=== PATIENT | female | born 1990 | race Caucasian/White ===

== ENCOUNTER 2018-06-21 20:47 | Emergency (ER) | payer OTHER ==
[2018-06-21 21:05] VITALS: BP 127/84
[2018-06-21] MEDS ORDERED: Tdap Vaccine 0.5 ml Vial (10-64 yrs) IM ONE (22:33)
[2018-06-21 22:37] VITALS: PULSE 79; RESP 20; TEMP 97.6; O2SAT 96
[2018-06-21] MEDS ORDERED: Tetanus/Diphtheria Toxoids 0.5 ml Syringe IM ONE (22:51)
--- NOTE | 2018-06-21 22:51 | C.PDOC ---
History Of Present Illness 27 year old female presents to the ED for evaluation of left index finger laceration. Patient reports that today while cooking she accidentally stabbed herself with a knife. Patient reports moderate bleeding at home. Patient denies fever, chills, rash, weakness, numbness. Time Seen by Provider: 06/21/18 21:22 Chief Complaint (Nursing): Abnormal Skin Integrity History Per: Patient History/Exam Limitations: no limitations Onset/Duration Of Symptoms: Hrs Current Symptoms Are (Timing): Still Present Location Of Injury: Left: Hand Quality Of Symptoms: Painful Recent travel outside of the [place]: No Additional History Per: Patient Past Medical History Reviewed: Historical Data, Nursing Documentation, Vital Signs Vital Signs: Last Vital Signs Temp 97.6 F 06/21/18 22:35 Pulse 79 06/21/18 22:35 Resp 20 06/21/18 22:35 BP 127/84 06/21/18 21:02 Pulse Ox 96 06/21/18 22:35 - Medical History PMH: No Chronic Diseases Denies: Chronic Kidney Disease Surgical History: No Surg Hx Family History: States: Unknown Family Hx - Social History Hx Alcohol Use: Yes Hx Substance Use: No - Immunization History Hx Influenza Vaccination: Yes Review Of Systems Constitutional: Negative for: Fever, Chills Musculoskeletal: Positive for: Hand Pain. Negative for: Arm Pain Skin: Positive for: Other (laceration) Neurological: Negative for: Weakness, Numbness, Dizziness Physical Exam - Physical Exam Appears: Non-toxic, No Acute Distress Skin: Normal Color, Warm, Dry Head: Atraumatic, Normacephalic Eye(s): bilateral: Normal Inspection Extremity: Normal ROM, No Tenderness, Capillary Refill (< 2 seconds), No Swelling, Other ( 1 cm superficial laceration to lateral aspect of left index finger) Pulses: Left Radial: Normal, Right Radial: Normal Neurological/Psych: Oriented x3, Normal Speech, Normal Cognition, Normal Motor, Normal Sensation Gait: Steady ED Course And Treatment O2 Sat by Pulse Oximetry: 96 (ON RA) Pulse Ox Interpretation: Normal Progress Note: Plan: - tetanus immunization. Patient tolerated procedure well, educated on proper wound care management. Patient advised to follow up with PMD. Laceration - Laceration Repair lateral aspect left index finger Wound Length (In cm): 1 Description Of Wound: Linear Wound Cleansed With: Betadine, Sterile Saline Wound Examination: Irrigated With Saline, No Tendon Injury With Wound Exploration Wound Closure: Steri Strips (x2 ), Skin Glue Wound Complexity: Simple Disposition Counseled Patient/Family Regarding: Diagnosis, Need For Followup - Disposition Disposition: HOME/ ROUTINE Disposition Time: 22:49 Condition: STABLE Additional Instructions: Please Keep wound dry and clean x 2 days Return to ER if worse Instructions: Laceration Repair With Glue (DC) Forms: [facility] (Slovenian) - Clinical Impression Clinical Impression: Laceration of finger of left hand - PA / STABLE MANAGER / Resident Statement MD/DO has reviewed & agrees with the documentation as recorded. - Scribe Statement The provider has reviewed the documentation as recorded by the Scribe Jeff Merchant All medical record entries made by the Scribe were at my direction and personally dictated by me. I have reviewed the chart and agree that the record accurately reflects my personal performance of the history, physical exam, medical decision making, and the department course for this patient. I have also personally directed, reviewed, and agree with the discharge instructions and disposition.
== END 2018-06-21 23:02 | disposition home or self-care (01) ==
LOC: C.ER 20:47
DX: S61.211A Laceration without foreign body of left index finger without damage to nail, initial encounter (principal); W26.0XXA Contact with knife, initial encounter; Y93.G3 Activity, cooking and baking; Y92.009 Unspecified place in unspecified non-institutional (private) residence as the place of occurrence of the external cause